=== PATIENT | male | born 1980 | race Caucasian/White ===

== ENCOUNTER 2020-01-22 07:28 | Emergency (ER) | payer BC, OTHER ==
[~2020-01-22] VITALS: Ht 170.2 cm; Wt 104.3 kg
[2020-01-22] MEDS ORDERED: LEXAPRO20 MG PO (07:45)
[2020-01-22] MEDS ORDERED: ABILIFY 5 MG TAB5 MG PO (07:45)
[2020-01-22] MEDS ORDERED: METFORMIN HCL500 M3 PO (07:46)
[2020-01-22] MEDS ORDERED: CLONAZEPAM 0.50.5 M1 PO (07:46)
[2020-01-22 09:07] LABS: ABSOLUTE NEUTROPHILS 7.6 thou/uL (1.4-8.2); BASOPHILS 1.2 % (0.0-2.0); HEMATOCRIT 44.7 % (42.0-52.0); HEMOGLOBIN 15.6 gm/dL (14.0-18.0); LYMPHOCYTES 28.1 % (24.0-44.0); MCH 30.5 pg (26.0-34.0); MCV 87.1 fL (80.0-100.0); MONOCYTES 4.9 % (1.0-8.0); PLATELET COUNT 295 thou/uL (150-400); POLYS 62.8 % (36.0-66.0); RBC 5.13 mil/uL (4.50-6.00); RDW 14.3 % (10.5-14.5); WBC 12.1 thou/uL (4.0-11.0)
[2020-01-22 09:10] LABS: ANION GAP 11 mmol/L (7-16); BUN 15 mg/dL (7-18); CALCIUM 9.5 mg/dL (8.5-10.1); CHLORIDE 103 mmol/L (98-107); CO2 25 mmol/L (21-32); CREATININE 1.1 mg/dL (0.7-1.3); GLUCOSE 108 mg/dL (74-106); SODIUM 139 mmol/L (136-145)
[2020-01-22 09:19] LABS: TROPONIN-I <0.06 ng/mL (<0.06)
[2020-01-22] MEDS ORDERED: TESSALON PERLE100 MG PO (09:47)
[2020-01-22] MEDS ORDERED: VIBRAMYCIN 100100 MG PO (09:47)
[2020-01-22 10:09] VITALS: BP 126/80
--- NOTE | 2020-01-22 11:52 | EKG ---
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
== END 2020-01-22 10:09 | disposition home or self-care (01) ==
LOC: ER 07:28
PROVIDERS: Emergency Medicine
DX: J18.8 Other pneumonia, unspecified organism (principal); F41.9 Anxiety disorder, unspecified; E66.9 Obesity, unspecified; Z68.36 Body mass index [BMI] 36.0-36.9, adult; Z79.84 Long term (current) use of oral hypoglycemic drugs; Z79.899 Other long term (current) drug therapy